=== PATIENT | female | born 1995 | race Two or more races ===

== ENCOUNTER 2023-06-27 05:53 | Emergency (ER) | payer BC ==
[~2023-06-27] VITALS: Ht 172.7 cm; Wt 59.2 kg
[2023-06-27 06:21] VITALS: BP 114/82; PULSE 88; RESP 16; TEMP 97.5
[2023-06-27 06:35] VITALS: O2SAT 100
[2023-06-27] MEDS ORDERED: DexAMETHasone SOD PHOS 10MG/1ML VIAL INJ IM ONE (07:00)
[2023-06-27] MEDS ORDERED: EPINEPHrine HCL 1 MG/1 ML AMP SC ONE (07:00)
[2023-06-27] MEDS ORDERED: HYDR25CA PO (07:21)
[2023-06-27] MEDS ORDERED: METH4PAK PO (07:21)
== END 2023-06-27 07:31 | disposition home or self-care (01) ==
LOC: ER 05:53
DX: T50.905A Adverse effect of unspecified drugs, medicaments and biological substances, initial encounter (principal); Y92.89 Other specified places as the place of occurrence of the external cause
CPT/HCPCS: 96372; 99284; J0171; J1100